=== PATIENT | female | born 1980 | race Caucasian/White ===

== ENCOUNTER 2017-11-26 18:28 | Emergency (ER) | payer OTHER ==
[~2017-11-26] VITALS: Ht 162.6 cm; Wt 77.6 kg
[2017-11-26 18:33] VITALS: Ht 162.6 cm; Wt 77.6 kg
[2017-11-26 19:40] VITALS: BP 137/92
== END 2017-11-26 19:40 | disposition home or self-care (01) ==
LOC: ED 18:28
DX: J02.9 Acute pharyngitis, unspecified (principal); H60.92 Unspecified otitis externa, left ear

== ENCOUNTER 2018-02-22 15:29 | Emergency (ER) | payer OTHER ==
[~2018-02-22] VITALS: Ht 162.6 cm; Wt 79.4 kg
[2018-02-22 15:37] VITALS: Ht 162.6 cm; Wt 79.4 kg
[2018-02-22 17:21] LABS: microscopic required? NO
[2018-02-22 17:28] LABS: UA SPECIFIC GRAVITY <=1.005 (1.005-1.035); urine erythrocyte NEGATIVE (NEGATIVE)
[2018-02-22 18:36] VITALS: BP 126/78
== END 2018-02-22 18:35 | disposition home or self-care (01) ==
LOC: ED 15:29
PROVIDERS: Emergency Medicine
DX: R10.30 Lower abdominal pain, unspecified (principal); R11.0 Nausea; Z98.890 Other specified postprocedural states; Z98.51 Tubal ligation status
CPT/HCPCS: J1885; Q0162